=== PATIENT | male | born 2000 | race Caucasian/White ===

== ENCOUNTER 2020-05-10 08:30 | Emergency (ER) | payer MEDICARE, MEDICAID, SELFPAY ==
[2020-05-10 08:34] VITALS: BMI 21.2
[2020-05-10 08:38] VITALS: BP 133/79; PULSE 76; RESP 18; TEMP 36.6; O2SAT 98
--- NOTE | 2020-05-10 08:44 | W.ED.GENADLT ---
HPI - General Adult General: Chief complaint: General Medical Stated complaint: thinks he may need covid testing Time Seen by Provider: 05/10/20 08:32 History of Present Illness: HPI narrative: Patient works at [employer]. 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 Patient is asymptomatic at this time but would like to be tested. MD complaint: COVID exposure Onset (ago): day(s) Associated symptoms: Deny chest pain, dyspnea, headache(s), nausea, rash or vomiting Review of Systems Const: Denies: fever(s), chills or body aches Eyes: Denies: change in vision or blurry vision ENMT: Denies: throat pain or nasal congestion Card: Denies: chest pain or dyspnea on exertion Resp: Denies: dyspnea, productive cough or non-productive cough GI: Denies: abdominal pain, nausea or vomiting : Denies: difficulty urinating Musc: Denies: extremity pain Skin/Breast: Denies: rash Neuro: Denies: headache(s) Psych: Denies: anxiety or depression Danny/Lymph: Denies: easy bruising PFSH ED PFSH: Social History Smoking and tobacco status: never smoked Physical Exam Const: COMMON NORMALS: no acute distress, average body habitus and patient oriented x3 HENMT: COMMON NORMALS: normocephalic HEAD & SCALP: normal to inspection and normocephalic FACE & SINUS: normal facial exam Eye: COMMON NORMALS: conjunctivae normal GENERAL EYE: appearance normal, both eyes and all related structures CONJUNCTIVA: Yes conjunctivae normal Neck/C-Spine: COMMON NORMALS: no JVD Chest: COMMONS NORMALS: normal inspection of the chest Resp: COMMON NORMALS: normal respiratory effort Cardio: COMMON NORMALS: no JVD GI: COMMON NORMALS: Normal to inspection, nondistended, normoactive bowel sounds present Extremity: COMMON NORMALS: normal to inspection and full ROM Neuro: COMMON NORMALS: patient oriented x3 Course Vital Signs: Vital signs: Vital Signs Temperature 97.9 F 05/10/20 08:38 Pulse Rate 76 05/10/20 08:38 Respiratory Rate 18 05/10/20 08:38 Blood Pressure 133/79 05/10/20 08:38 Pulse Oximetry 98 05/10/20 08:38 Discharge Plan Discharge Prescriptions: No Action No Known Home Medications RF: 0 Coding Level of Care Code 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
[2020-05-10 09:28] VITALS: BP 133/79; PULSE 76; RESP 18; TEMP 36.6; O2SAT 98
== END 2020-05-10 09:28 | disposition home or self-care (01) ==
PROVIDERS: Emergency Provider Nurse Practitioner Family; PCP Occupational Therapist
DX: Z20.828 Contact with and (suspected) exposure to other viral communicable diseases (principal)
CPT/HCPCS: 12345; 99281; 99283

== ENCOUNTER 2021-06-12 22:39 | Emergency (ER) | payer OTHER, MEDICARE, MEDICAID, SELFPAY ==
[2021-06-12 22:52] VITALS: BP 130/88; PULSE 109; RESP 18; TEMP 36.9; O2SAT 95; BMI 30.7
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
[2021-06-12] MEDS: ketorolac 30 mg/mL INJ 15 MG IVP (23:26)
[2021-06-12] MEDS: iohexol 300 mg/mL 100 mL Btl IV (23:37)
[2021-06-13 00:01] LABS: Basophils % 0.3 %; Eosinophils % 0.4 %; Hematocrit 45.5 % (42.0-52.0); Hemoglobin 15.2 g/dL (11.7-16.6); Lymphocytes # 2.3 10^3/uL (0.8-4.8); Lymphocytes % 33.3 %; Mean Corpuscular HGB Conc 33.4 g/dL (30.0-36.0); Mean Corpuscular Hemoglobin 28.1 pg (28.0-34.0); Mean Corpuscular Volume 84.1 fL (80-94); Mean Platelet Volume 10.1 fL (7.4-10.4); Monocytes # 0.4 10^3/uL (0.2-0.9); Monocytes % 6.2 %; Neutrophils # 4.15 10^3/uL (1.8-7.7); Neutrophils % 59.5 %; Nucleated Red Blood Cells % 0 %; Platelet Count 220 10^3/cmm (130-400); Red Blood Count 5.41 10^6/uL (4.1-5.3); Red Cell Distribution Width 13.3 % (12.1-15.1)
[2021-06-13 00:19] LABS: Alanine Aminotransferase 39 U/L (0-41); Albumin Level 5.1 g/dL (3.5-5.2); Alkaline Phosphatase 78 IU/L (40-130); Anion Gap 18.3 (5-19); Aspartate Amino Transferase 29 U/L (0-40); Blood Urea Nitrogen 11 mg/dL (6-20); Calcium 9.6 mg/dL (8.5-10.5); Carbon Dioxide 26 mmol/L (22-29); Chloride 98 mmol/L (98-107); Glomerular Filtration Rate 120.9 mL/min (90-130); Glucose 101 mg/dL (65-115); Osmolality Calculated 288 mOsm/kg (285-295); Potassium 3.3 mmol/L (3.5-5.1); Sodium 139 mmol/L (136-145); Total Bilirubin 0.5 mg/dL (0.15-1.2); Total Protein 8.1 g/dL (6.6-8.7)
[2021-06-13 01:15] VITALS: BP 123/69; RESP 16
--- NOTE | 2021-06-14 12:08 | DCPLANNER ---
manager product design had message to schedule a follow up appointment for patient with heart care. manager product design called [facility], spoke with Saima, gave clinic patients information. A follow up appointment was scheduled for June at 3:[address] Buck. manager product design called patient, spoke with his father, gave him the appointment information for patient.
--- NOTE | 2021-06-14 15:36 | DCPLANNER ---
Addendum entered by Jessica Matthews 06/16/21 07:42: Patient has a follow up appointment scheduled for June at 2:[address] Martinez. Clinic will call patient with appointment information. Original Note: information technology program manager had message to schedule a follow up appointment for patient with ENT. information technology program manager emailed patients information to Marianela Arias and Norma at [facility] General Surgery / ENT clinic. Patients information will be printed and reviewed. Clinic will call patient with appointment information.
--- NOTE | 2021-07-02 14:57 | DCPLANNER ---
Patient had a follow up appointment scheduled for 06.17.21 with ENT - patient did attend appointment.
--- NOTE | 2021-07-02 14:58 | DCPLANNER ---
Patient had a follow up appointment scheduled for 06.17.21 with [facility] - patient did attend appointment.
== END 2021-06-13 01:10 | disposition home or self-care (01) ==
PROVIDERS: Emergency Provider Nurse Practitioner Family; PCP Occupational Therapist
DX: S02.2XXA Fracture of nasal bones, initial encounter for closed fracture (principal); S50.12XA Contusion of left forearm, initial encounter; S80.12XA Contusion of left lower leg, initial encounter; V13.4XXA Pedal cycle driver injured in collision with car, pick-up truck or van in traffic accident, initial encounter
CPT/HCPCS: 70450; 70486; 71260; 72125; 73000; 73060; 73090; 73552; 73590; 74177; 80053; 85025; 96374; 99283; J1885; Q9967

== ENCOUNTER 2021-07-21 11:45 | Outpatient (CLI) | payer MEDICARE, MEDICAID, SELFPAY ==
--- NOTE | 2021-07-21 12:00 | USCV_ITS ---
Syliwa Varelan Age: 20 Gender: M : 2000 Exam Date: 07/21/2021 12:09 Ordering Phys: Storm Hyde M.D ([email or web address]) Technologist: MEAGHAN Exam Location: [facility] [place] Indication: HYPERTENSION BP: 124 / 72 HR: 54 Rhythm: Sinus Technical Quality: Good MEASUREMENTS (Male / Female) Normal Values 2D ECHO LV Diastolic Diameter PLAX 4.9 cm 4.2 - 5.9 / 3.9 - 5.3 cm LV Systolic Diameter PLAX 3.2 cm IVS Diastolic Thickness 0.7 cm 0.6 - 1.0 / 0.6 - 0.9 cm IVS Systolic Thickness 1.2 cm LVPW Diastolic Thickness 1.1 cm 0.6 - 1.0 / 0.6 - 0.9 cm LVPW Systolic Thickness 1.7 cm LVOT Diameter 2.3 cm LV Ejection Fraction 2D Teich 63.9 % LV Ejection Fraction MOD 2C 57.7 % LV Ejection Fraction 2C AL 57.7 % LA Diameter 2.9 cm LA Width 4.0 cm LA Height 5.9 cm RA Width 4.5 cm RA Height 4.7 cm Aorta at Sinotubular Diameter 2.9 cm DOPPLER AV Peak Velocity 103.0 cm/s LVOT Peak Velocity 95.0 cm/s AV Area Cont Eq vti 3.6 cm squared AV Area Cont Eq pk 3.8 cm squared MV Peak Velocity 376.0 cm/s MV Area PHT 3.9 cm squared Mitral E to A Ratio 1.8 MV E' Velocity 47.5 cm/s Mitral E to MV E' Ratio 4.7 Mitral E to LV E' Lateral Ratio 4.5 Mitral E to LV E' Septal Ratio 5.0 TR Peak Velocity 206.9 cm/s TR Peak Gradient 17.1 mmHg TR Mean Velocity 101.3 cm/s TR Mean Gradient 4.7 mmHg TR Velocity Time Integral 43.0 cm PV Peak Velocity 59.0 cm/s RV Acceleration Time 0.1 s RV Ejection Time 0.3 s RV AcT/ET 0.4 FINDINGS Left Ventricle Normal left ventricular size. LV systolic function is normal with EF of 55-60%. No regional wall motion abnormalities. Normal diastolic filling pattern. Right Ventricle The right ventricle is normal in size and function. Right Atrium The right atrium is normal in size. Left Atrium The left atrium is normal in size. Mitral Valve Structurally normal mitral valve without significant stenosis or prolapse. There is mild mitral regurgitation. Aortic Valve Structurally normal aortic valve without significant sclerosis or stenosis. There is no aortic regurgitation. Tricuspid Valve Structurally normal tricuspid valve without significant stenosis or regurgitation. Insufficient TR jet to calculate RVSP Pulmonic Valve Structurally normal pulmonic valve without significant stenosis. There is no pulmonic regurgitation. Pericardium Normal pericardium without effusion. Aorta Normal ascending aorta dimension. CONCLUSIONS LV systolic function is normal with EF of 55-60% Diastolic function is normal Mild mitral regurgitation No comparison studies are available Storm Hyde MD (Electronically Signed) Final Date: 21 July 2021 17:13 S
== END 2021-07-21 11:46 | disposition home or self-care (01) ==
PROVIDERS: PCP Nurse Practitioner Family; Visit Provider Internal Medicine
DX: I11.9 Hypertensive heart disease without heart failure (principal); I34.0 Nonrheumatic mitral (valve) insufficiency
CPT/HCPCS: 93306

== ENCOUNTER → 2022-10-17 12:01 | Outpatient (BNVA) | payer MEDICARE, MEDICAID, SELFPAY | PROVIDERS: PCP Nurse Practitioner Family; Visit Provider Internal Medicine Cardiovascular Disease | DX: I10 Essential (primary) hypertension (principal) | CPT/HCPCS: 99213 ==

== ENCOUNTER → 2022-12-29 11:20 | Outpatient (BNVA) | payer MEDICARE, MEDICAID, SELFPAY | PROVIDERS: PCP Nurse Practitioner Family; Visit Provider Podiatrist Foot & Ankle Surgery | DX: M21.41 Flat foot [pes planus] (acquired), right foot (principal); M21.42 Flat foot [pes planus] (acquired), left foot; M76.811 Anterior tibial syndrome, right leg; M76.812 Anterior tibial syndrome, left leg | CPT/HCPCS: 99203 ==

== ENCOUNTER → 2023-02-22 11:11 | Outpatient (BNVA) | payer MEDICARE, MEDICAID, SELFPAY | PROVIDERS: PCP Nurse Practitioner Family; Visit Provider Podiatrist Foot & Ankle Surgery | DX: M76.811 Anterior tibial syndrome, right leg (principal); M76.812 Anterior tibial syndrome, left leg; M21.41 Flat foot [pes planus] (acquired), right foot; M21.42 Flat foot [pes planus] (acquired), left foot | CPT/HCPCS: 99213 ==

== ENCOUNTER → 2023-10-16 13:38 | Outpatient (BNVA) | payer MEDICARE, MEDICAID, SELFPAY | PROVIDERS: PCP Nurse Practitioner Family; Visit Provider Internal Medicine | DX: I10 Essential (primary) hypertension (principal); I34.0 Nonrheumatic mitral (valve) insufficiency | CPT/HCPCS: 99214 ==

== ENCOUNTER 2024-02-18 08:34 | Emergency (ER) | payer MEDICARE, MEDICAID, SELFPAY ==
[2024-02-18 08:35] VITALS: BMI 24.3
[2024-02-18 08:37] VITALS: BP 156/89; PULSE 90; RESP 16; TEMP 36.9; O2SAT 95
--- NOTE | 2024-02-18 08:39 | CTR_ITS ---
PROCEDURE INFORMATION: Exam: CT Head Without Contrast Exam date and time: 02/18/2024 8:50 AM Age: 23 years old Clinical indication: Other: Seizure TECHNIQUE: Imaging protocol: Computed tomography of the head without contrast. Radiation optimization: All CT scans at this facility use at least one of these dose optimization techniques: automated exposure control; mA and/or kV adjustment per patient size (includes targeted exams where dose is matched to clinical indication); or iterative reconstruction. COMPARISON: CT head wo con* [id number] 06/12/2021 11:18 PM RADIATION DOSE METRICS: Total DLP (mGy-cm): 1082.23 FINDINGS: Brain: Otherwise, no additional intracranial mass, midline shift, acute intracranial hemorrhage, nor abnormal extra-axial fluid collection seen. Donald-white matter differentiation appears maintained. Ventricles, sulci do not appear enlarged. Cerebral ventricles: See Brain finding. Pituitary gland and sella: Pituitary gland appears mildly prominent subjectively with upward bowing, convex superior surface, measured at about 8-9 mm. Paranasal sinuses: Partial opacification sphenoid sinus, left maxillary sinus, ethmoid air cells bilaterally. Sphenoid sinus appears large, prominent, with prominent pneumatization bilaterally. Mastoid air cells: Visualized portions mastoid air cells included appear clear bilaterally. Bones/joints: No displaced, depressed skull fracture seen. Soft tissues: Unremarkable. CT/CT head wo con* [id number] IMPRESSION: 1. No acute intracranial abnormality seen. 2. Pituitary gland appears mildly prominent subjectively with upward bowing, convex superior surface, measured at about 8-9 mm. Nonemergent MRI may be helpful. 3. Partial opacification paranasal sinuses.
--- NOTE | 2024-02-18 08:40 | ED_ITS ---
HPI - Seizure 2 General: Chief Complaint: Seizure Stated Complaint: SEIZURE Time Seen by Provider: 02/18/24 08:36 Source: patient Mode of arrival: ambulatory Limitations: no limitations History of Present Illness: HPI Narrative: 23-year-old male states he is up all nig ht playing video games to take a sleeping pill can go to sleep and then had a witnessed seizure. Seizure lasted roughly a minute he did not have a postictal period he is now back to his baseline he has no complaints he denies any headache or chest pain send no vomiting or diarrhea. Associated symptoms: Deny chest pain, chills or fever(s) Review of Systems 2 Const: Denies: fever(s), chills, body aches or change in appetite ENMT: Denies: throat pain or dental pain Card: Denies: chest pain Resp: Denies: dyspnea GI: Denies: abdominal pain, nausea, vomiting or diarrhea : Denies: dysuria Musc: Denies: neck pain or back pain Skin/Breast: Denies: rash Neuro: Reports: seizure-like activity; Denies: headache(s) PFSH ED 2 PFSH: Medical History Psychiatric care Hypertension Social History Smoking and tobacco/nicotine status: never used tobacco/nicotine Alcohol intake: never Substance/Drug Use: never Physical Exam 2 Const: COMMON NORMALS: no acute distress, patient oriented x3 and healthy appearing HENMT: COMMON NORMALS: normocephalic and atraumatic HEAD & SCALP: n ormocephalic and atraumatic Neck/C-Spine: COMMON NORMALS: full ROM and supple Chest: COMMONS NORMALS: normal inspection of the chest and normal palpation of entire chest wall Resp: COMMON NORMALS: normal respiratory effort, No retractions, No use of accessory muscles and clear to auscultation bilaterally AUSCULTATION: clear to auscultation bilaterally Cardio: COMMON NORMALS: regular rate, regular rhythm and No murmurs present (Cardio) RATE: regular rate RHYTHM: regular rhythm GI: COMMON NORMALS: Normal to inspection, nondistended, normoactive bowel sounds present, Soft to palpation, non-tender and no masses PALPATION: Yes Soft to palpation Extremity: COMMON NORMALS: normal to inspection and full ROM Neuro: COMMON NORMALS: patient oriented x3, moves all extremities and no focal motor deficits Psych: COMMON NORMALS: mental status grossly normal, Normal thought process present and cooperative THOUGHT PROCESS: Normal thought process present Skin: COMMON NORMALS: no rashes or lesions noted and no wounds GENERAL SKIN EXAM: no rashes or lesions noted Course 2 Vital Signs: Vital signs: Vital Signs Temperature 98.5 F 02/18/24 08:37 Pulse Rate 70 02/18/24 09:32 Respiratory Rate 14 02/18/24 09:32 Blood Pressure 156/89 02/18/24 09:32 Pulse Oximetry 100 02/18/24 09:32 Oxygen Delivery Me thod Room Air 02/18/24 09:32 MDM - Seizure MDM Narrative Medical decision making narrative: Patient presents here with a seizure he is well-appearing here head CT blood work are normal white well-appearing here he stable for discharge he is follow- up with neurology and return if worsening. Lab Data 02/18/24 08:41 02/18/24 08:41 Labs: Radiology Impressions Head CT 02/18/24 08:39 IMPRESSION: 1. No acute intracranial abnormality seen. 2. Pituitary gland appears mildly prominent subjectively with upward bowing, convex superior surface, measured at about 8-9 mm. Nonemergent MRI may be helpful. 3. Partial opacification paranasal sinuses. Laboratory Results WBC 7.06 10^3/uL (3.29-11.43) 02/18/24 08:41 RBC 5.36 10^6/uL (3.85-5.65) 02/18/24 08:41 Hgb 15.20 g/dL (11.27-16.99) 02/18/24 08:41 Hct 46.6 % (37-53) 02/18/24 08:41 MCV 86.9 fl (82-101) 02/18/24 08:41 MCH 28.4 pg (27-33) 02/18/24 08:41 MCHC 32.6 g/dL (30-55) 02/18/24 08:41 RDW 13.4 % (12.1-15.1) 02/18/24 08:41 Plt Count 211 10^3/cmm (157-399) 02/18/24 08:41 MPV 10.3 fL (7.4-10.4) 02/18/24 08:41 Neut % (Auto) 41.4 % 02/18/24 08:41 Lymph % (Auto) 46.5 % 02/18/24 08:41 [place] % (Auto) 7.1 % 02/18/24 08:41 Eos % (Auto) 2.3 % 02/18/24 08:41 Baso % (Auto) 0.4 % 02/18/24 08:41 Neut # (Auto) 2.93 10^3/uL (1.8-7.7) 02/18/24 08:41 Lymph # (Auto) 3.3 10^3/uL (0.8-4.8) 02/18/24 08:41 [place] # (Auto) 0.5 10^3/uL (0.2-0.9) 02/18/24 08:41 Eos # (Auto) 0.2 10^3/uL (0.0-0.8) 02/18/24 08:41 Baso # (Auto) 0.0 10^3/uL (0.0-0.1) 02/18/24 08:41 Nucleated RBC % (auto) 0 % 02/18/24 08:41 Nucleated RBCs # 0.0 /100WBC 02/18/24 08:41 Sodium 140 mmol/L (136-145) 02/18/24 08:41 Chloride 98 mmol/L (98-107) 02/18/24 08:41 BUN 9 mg/dL (6-20) 02/18/24 08:41 Creatinine 0.8 mg/dL (0.7-1.2) 02/18/24 08:41 GFR Calculation 117.8 mL/min (90-130) 02/18/24 08:41 Calculated Osmolality 290 mOsm/kg (285-295) 02/18/24 08:41 Calcium 9.8 mg/dL (8.5-10.5) 02/18/24 08:41 Total Bilirubin 0.4 mg/dL (0.15-1.2) 02/18/24 08:41 AST 30 U/L (0-40) 02/18/24 08:41 Alkaline Phosphatase 84 U/L (40-130) 02/18/24 08:41 Total Protein 8.2 g/dL (6.6-8.7) 02/18/24 08:41 Albumin 4.8 g/dL (3.5-5.2) 02/18/24 08:41 Globulin 3.4 g/dL (1.3-4.6) 02/18/24 08:41 All radiology interpretation(s) finalized by discharge Discharge Plan Discharge Patient Disposition: Home Clinical Impression: Generalized seizure Condition: Stable Prescriptions: No Action sertraline [Zoloft] 100 mg tablet 100 mg PO DAILY Qty: 30 2RF Rx Instructions: Take 1/2 tab daily for 2 weeks then a full tab daily lisinopril 5 mg tablet 5 mg PO DAILY trazodone 50 mg tablet 100 mg PO BEDTIME PRN (Reason: insomnia) Rx Instructions: Take 1-2 tabs at night as needed. Discharge Orders: Discharge ED (Routine); Ordered 02/18/24 Ordered By: Neil Vela Referrals: Airam Trevizo FNP [Primary Care Provider] - 1-3 days Discharge Diet: Advance as tolerated Discharge Activity: Resume usual activity Patient Instructions: Generalized Tonic Clonic Seizures (ED) Coding Level of Care Code ED English Lecturer for Shelton Hilario
[2024-02-18 09:05] LABS: Basophils % 0.4 %; Eosinophils # 0.2 10^3/uL (0.0-0.8); Eosinophils % 2.3 %; Hematocrit 46.6 % (37-53); Lymphocytes # 3.3 10^3/uL (0.8-4.8); Lymphocytes % 46.5 %; Mean Corpuscular HGB Conc 32.6 g/dL (30-55); Mean Corpuscular Hemoglobin 28.4 pg (27-33); Mean Corpuscular Volume 86.9 fl (82-101); Mean Platelet Volume 10.3 fL (7.4-10.4); Monocytes # 0.5 10^3/uL (0.2-0.9); Monocytes % 7.1 %; Neutrophils # 2.93 10^3/uL (1.8-7.7); Neutrophils % 41.4 %; Nucleated Red Blood Cells % 0 %; Platelet Count 211 10^3/cmm (157-399); Red Blood Count 5.36 10^6/uL (3.85-5.65); Red Cell Distribution Width 13.4 % (12.1-15.1); White Blood Count 7.06 10^3/uL (3.29-11.43)
[2024-02-18 09:29] LABS: Alanine Aminotransferase 67 U/L (0-41); Albumin Level 4.8 g/dL (3.5-5.2); Alkaline Phosphatase 84 U/L (40-130); Aspartate Amino Transferase 30 U/L (0-40); Blood Urea Nitrogen 9 mg/dL (6-20); Calcium 9.8 mg/dL (8.5-10.5); Carbon Dioxide 18 mmol/L (22-29); Chloride 98 mmol/L (98-107); Creatinine Clr Calc Pharmacy 149.0296; Globulin 3.4 g/dL (1.3-4.6); Glomerular Filtration Rate 117.8 mL/min (90-130); Glucose 122 mg/dL (65-115); Osmolality Calculated 290 mOsm/kg (285-295); Sodium 140 mmol/L (136-145); Total Bilirubin 0.4 mg/dL (0.15-1.2); Total Protein 8.2 g/dL (6.6-8.7)
[2024-02-18 09:32] VITALS: BP 156/89; PULSE 70; RESP 14; O2SAT 100
[2024-02-18 09:44] LABS: Anion Gap 27.4 (5-19); Potassium 3.4 mmol/L (3.5-5.1)
[2024-02-18 10:06] VITALS: BP 126/75; PULSE 75; RESP 16; O2SAT 97
--- NOTE | 2024-02-19 10:52 | DCPLANNER ---
A message was sent to neurology on 02/19/24 at [id number]. [facility] to contact patient for appt
== END 2024-02-18 10:07 | disposition home or self-care (01) ==
PROVIDERS: Emergency Provider Emergency Medicine; PCP Nurse Practitioner Family
DX: G40.89 Other seizures (principal); I10 Essential (primary) hypertension
CPT/HCPCS: 70450; 80053; 85025; 99284

== ENCOUNTER 2024-03-20 06:43 | Outpatient (CLI) | payer MEDICARE, MEDICAID, SELFPAY ==
--- NOTE | 2024-03-20 07:15 | MR_ITS ---
WS: [id number] MRI HEAD WITHOUT AND WITH GADOLINIUM ENHANCEMENT WITH PITUITARY PROTOCOL. TECHNIQUE: Sagittal T1, T2 axial, T2 axial FLAIR, axial susceptibility weighted imaging, axial diffus ion weighted images, and coronal T2 images were obtained. Pre and post-T1 axial and post T1 coronal i mages. ADC and FSPGR images. Pituitary protocol performed CLINICAL INFORMATION: PITUITARY GLAND ENLARGED COMPARISON: CT head 02/18/2024 FINDINGS: Slightly prominent pituitary tissue at the upper end of the range although within normal limits for a patient this age with slightly convex superior border. Pituitary tissue measures approximately 8 mm craniocaudal. Normal enhancing pituitary tissue. No focal lesions. No evidence of microadenoma on the dynamic imaging. Normal optic chiasm and pituitary infundibulum. Normal cavernous sinuses and Meckel 's cave. No evidence of restricted diffusion to suggest acute ischemia. Normal posterior fossa. Normal vascula r flow voids at the skull base. No extra-axial fluid collections. No evidence of mass or mass effect. Paranasal sinuses and mastoid air cells are well aerated. Normal posterior nasopharynx. No hemosiderin on susceptibility-weighted images. MR/MR pituitary wo/w con* [id number] IMPRESSION: 1. Slightly prominent pituitary tissue at the upper limits of normal has a ravi ign appearance likely incidental. Recommend correlation with pituitary function studies. 2. No evidence of intrasellar or suprasellar mass. No evidence of microadenoma . 3. No other acute findings.
== END 2024-03-20 06:44 | disposition home or self-care (01) ==
LOC: RAD 06:44
PROVIDERS: PCP Nurse Practitioner Family; Visit Provider Nurse Practitioner Family
DX: E23.6 Other disorders of pituitary gland (principal)
CPT/HCPCS: 70553; A9577

== ENCOUNTER → 2024-06-12 08:33 | Outpatient (BNVA) | payer MEDICARE, SELFPAY | PROVIDERS: PCP Nurse Practitioner Family; Referring Provider Nurse Practitioner Family; Visit Provider Specialist | DX: G40.909 Epilepsy, unspecified, not intractable, without status epilepticus; Q86.0 Fetal alcohol syndrome (dysmorphic) | CPT/HCPCS: 99204; 99205 ==

== ENCOUNTER → 2024-07-04 09:21 | Outpatient (BNVA) | payer MEDICARE, MEDICAID, OTHER, SELFPAY | PROVIDERS: PCP Nurse Practitioner Family; Referring Provider Nurse Practitioner Family; Visit Provider Internal Medicine | DX: E23.7 Disorder of pituitary gland, unspecified (principal); R56.9 Unspecified convulsions; F41.1 Generalized anxiety disorder | CPT/HCPCS: 99204 ==

== ENCOUNTER 2024-07-10 08:40 | Outpatient (CLI) | payer MEDICARE, MEDICAID, SELFPAY ==
[2024-07-10 10:07] LABS: Cortisol Random 8.82 ug/dL (2.47-19.5); Free T4 Free Thyroxine 1.45 ng/dL (0.82-1.77); Testosterone Total 539.2 ng/dL (249-836); Thyroid Stimulating Hormone 2.39 uIU/mL (0.27-4.20)
[2024-07-10 11:44] LABS: Follicle Stimulating Hormone 3.5 mIU/mL (1.5-12.4); Luteinizing Hormone 2.7 mIU/mL (1.7-8.6); Prolactin 12.41 ng/mL (4.0-15.2)
== END 2024-07-10 08:41 | disposition home or self-care (01) ==
LOC: LAB 08:44
PROVIDERS: PCP Nurse Practitioner Family; Visit Provider Internal Medicine
DX: E23.7 Disorder of pituitary gland, unspecified (principal); R56.9 Unspecified convulsions; F41.1 Generalized anxiety disorder
CPT/HCPCS: 36415; 82533; 83001; 83002; 84146; 84305; 84403; 84439; 84443

== ENCOUNTER 2024-08-14 07:54 | Outpatient (CLI) | payer MEDICARE, MEDICAID, SELFPAY ==
--- NOTE | 2024-08-14 08:00 | MR_ITS ---
WS: [id number] MRI HEAD WITHOUT AND WITH GADOLINIUM ENHANCEMENT WITH PITUITARY PROTOCOL TECHNIQUE: Sagittal T1, T2 axial, T2 axial FLAIR, axial susceptibility weighted imaging, axial diffus ion weighted images, and coronal T2 images were obtained. Pre and post-T1 axial and post T1 coronal i mages. ADC and FSPGR images. Pituitary protocol. CLINICAL INFORMATION: pituitary disorder COMPARISON: MRI 03/20/2024 FINDINGS: No evidence of restricted diffusion to suggest acute ischemia. No suspicious intracranial signal norm alities. Normal delgado-white differentiation. Normal posterior fossa. Normal vascular flow voids at the skull base. No extra-axial fluid collections. No evidence of mass or mass effect. Mild mucosal thick ening in the paranasal sinuses. Mastoid air cells are well aerated. Normal posterior nasopharynx. Again seen is prominent pituitary tissue at the upper end of the range although within normal limits for a patient this age as previously described. Slightly convex superior border. Pituitary tissue trent sures approximately 8 mm craniocaudal unchanged compared to previous. Normal enhancing pituitary tiss ue. No evidence of microadenoma on the dynamic imaging. No evidence of suprasellar mass. Normal optic chi asm and pituitary infundibulum. Normal cavernous sinuses and Meckel's cave. MR/MR pituitary wo/w con* [id number] IMPRESSION: 1. No evidence of restricted diffusion to suggest acute ischemia. 2. Previously described prominent pituitary tissue at the upper end of the ran ge is unchanged in appearance compared to previous. 3. No evidence of intrasellar or suprasellar mass. 4. No other acute findings.
[2024-08-14] MEDS: gadobenate dimeglumine 20 mL vial 17 ML IV (09:01)
== END 2024-08-14 07:55 | disposition home or self-care (01) ==
LOC: RAD 07:55
PROVIDERS: PCP Nurse Practitioner Family; Visit Provider Internal Medicine
DX: E23.7 Disorder of pituitary gland, unspecified (principal)
CPT/HCPCS: 70553

== ENCOUNTER → 2024-09-20 07:54 | Outpatient (BNVA) | payer MEDICARE, MEDICAID, SELFPAY | PROVIDERS: PCP Nurse Practitioner Family; Visit Provider Specialist | DX: R56.9 Unspecified convulsions (principal) | CPT/HCPCS: 95819 ==

== ENCOUNTER → 2024-12-06 08:15 | Outpatient (BNVA) | payer MEDICARE, MEDICAID, OTHER, SELFPAY | PROVIDERS: PCP Nurse Practitioner Family; Visit Provider Specialist | DX: G40.909 Epilepsy, unspecified, not intractable, without status epilepticus (principal); Q86.0 Fetal alcohol syndrome (dysmorphic) | CPT/HCPCS: 99214 ==

== ENCOUNTER 2025-04-28 14:06 | Emergency (ER) | payer MEDICARE, MEDICAID, SELFPAY ==
[2025-04-28 14:14] VITALS: BP 125/77; PULSE 85; RESP 20; TEMP 36.7; O2SAT 99
--- NOTE | 2025-04-28 14:22 | ED.C_ITS ---
HPI - Psych 2 General: Chief Complaint: Psychiatric Symptoms Stated Complaint: SI Time Seen by Provider: 04/28/25 14:07 Source: patient and EMS Mode of arrival: EMS Limitations: no limitations History of Present Illness: 24-year-old male history of feta alcohol syndrome lives in assisted living patient today try to kill himself he admitted saying suicidal he put a bag over his head try to suffocate himself. Patient here is very upset crying states he has pain all over difficult to get history from him at this time with how upset he is. Related Data Home Medications ?Medication ?Instructions ?Recorded ?Confirmed lisinopril 5 mg tablet 5 mg PO DAILY 02/18/2404/28 Previous Rx's ?Medication ?Instructions ?Recorded amitriptyline 25 mg tablet 25 mg PO .HS #30 tabs 11/27 Allergies Allergy/AdvReac Type Severity Reaction Status Date / Time No Known Allergies Allergy Verified 12/06/24 08:26 Review of Systems 2 General: Reports: ROS unobtainable due to mental status PFSH ED 2 PFSH: Medical History Psychiatric care Hypertension Social History Smoking and tobacco/nicotine status: never used tobacco/nicotine Alcohol intake: never Substance/Drug Use: never Physical Exam 2 Const: GENERAL APPEARANCE: anxious HENMT: COMMON NORMALS: normocephalic and atraumatic HEAD & SCALP: n ormocephalic and atraumatic Eye: COMMON NORMALS: conjunctivae normal CONJUNCTIVA: Yes conjunctivae normal Neck/C-Spine: COMMON NORMALS: full ROM and supple Chest: COMMONS NORMALS: normal inspection of the chest Resp: COMMON NORMALS: normal respiratory effort, No retractions, No use of accessory muscles and clear to auscultation bilaterally AUSCULTATION: clear to auscultation bilaterally Cardio: COMMON NORMALS: regular rate, regular rhythm and No murmurs present (Cardio) RATE: regular rate RHYTHM: regular rhythm GI: COMMON NORMALS: Normal to inspection, nondistended, normoactive bowel sounds present, Soft to palpation, non-tender and no masses PALPATION: Yes Soft to palpation Extremity: COMMON NORMALS: normal to inspection and full ROM Neuro: COMMON NORMALS: moves all extremities and no focal motor deficits Psych: ACTIVITY/MOTOR BEHAVIOR: Yes restless MOOD & AFFECT: Yes depressed mood and Yes tearful THOUGHT CONTENT: Yes Suicidality present Skin: COMMON NORMALS: no rashes or lesions noted and no wounds GENERAL SKIN EXAM: no rashes or lesions noted Course 2 Vital Signs: Vital signs: Vital Signs Temperature 98.1 F 04/28/25 14:14 Pulse Rate 73 04/28/25 19:00 Respiratory Rate 20 H 04/28/25 14:14 Blood Pressure 125/77 04/28/25 14:14 Pulse Oximetry 92 04/28/25 19:00 Oxygen Delivery Me thod Room Air 04/28/25 19:00 MDM - Psych Medical Decision Making Patient presents here with suicidal ideations patient is medically cleared he is calm down he is excepted at [place] will transfer there as we do not have any bed availability. Medical Records I reviewed the patient's medical records. Lab Data I reviewed the patient's lab results. 04/28/25 16:00 04/28/25 16:00 Laboratory Results WBC 7.27 10^3/uL (3.29-11.43) 04/28/25 16:00 RBC 5.27 10^6/uL (3.85-5.65) 04/28/25 16:00 Hgb 14.90 g/dL (11.27-16.99) 04/28/25 16:00 Hct 43.3 % (37-53) 04/28/25 16:00 MCV 82.2 fl (82-101) 04/28/25 16:00 MCH 28.3 pg (27-33) 04/28/25 16:00 MCHC 34.4 g/dL (30-55) 04/28/25 16:00 RDW 12.6 % (12.1-15.1) 04/28/25 16:00 Plt Count 203 10^3/cmm (157-399) 04/28/25 16:00 MPV 10.1 fL (7.4-10.4) 04/28/25 16:00 Neut % (Auto) 76.0 % 04/28/25 16:00 Lymph % (Auto) 19.1 % 04/28/25 16:00 [place] % (Auto) 4.5 % 04/28/25 16:00 Eos % (Auto) 0.0 % 04/28/25 16:00 Baso % (Auto) 0.1 % 04/28/25 16:00 Neut # (Auto) 5.52 10^3/uL (1.8-7.7) 04/28/25 16:00 Lymph # (Auto) 1.4 10^3/uL (0.8-4.8) 04/28/25 16:00 [place] # (Auto) 0.3 10^3/uL (0.2-0.9) 04/28/25 16:00 Eos # (Auto) 0.0 10^3/uL (0.0-0.8) 04/28/25 16:00 Baso # (Auto) 0.0 10^3/uL (0.0-0.1) 04/28/25 16:00 Nucleated RBC % (auto) 0 % 04/28/25 16:00 Nucleated RBCs # 0.0 /100WBC 04/28/25 16:00 Sodium 140 mmol/L (136-145) 04/28/25 16:00 Potassium 3.5 mmol/L (3.5-5.1) 04/28/25 16:00 Chloride 104 mmol/L (98-107) 04/28/25 16:00 Carbon Dioxide 21 mmol/L (22-29) L 04/28/25 16:00 Anion Gap 18.5 (5-19) 04/28/25 16:00 BUN 16 mg/dL (6-20) 04/28/25 16:00 Creatinine 0.8 mg/dL (0.7-1.2) 04/28/25 16:00 GFR Calculation 116.9 mL/min (90-130) 04/28/25 16:00 Glucose 82 mg/dL (65-115) 04/28/25 16:00 Calculated Osmolality 290 mOsm/kg (285-295) 04/28/25 16:00 Calcium 10.3 mg/dL (8.5-10.5) 04/28/25 16:00 Total Bilirubin 0.6 mg/dL (0.15-1.2) 04/28/25 16:00 AST 20 U/L (0-40) 04/28/25 16:00 ALT 22 U/L (0-41) 04/28/25 16:00 Alkaline Phosphatase 69 U/L (40-130) 04/28/25 16:00 Total Protein 7.9 g/dL (6.6-8.7) 04/28/25 16:00 Albumin 4.6 g/dL (3.5-5.2) 04/28/25 16:00 Globulin 3.3 g/dL (1.3-4.6) 04/28/25 16:00 TSH 2.08 uIU/mL (0.27-4.20) 04/28/25 16:00 Salicylates < 0.3 mg/dL (3-10) L 04/28/25 16:00 Urine Opiates Screen Negative ng/mL (Negative) 04/28/25 19:32 Acetaminophen < 5.0 ug/mL (10-30) L 04/28/25 16:00 Ur Barbiturates Screen Negative ng/mL (Negative) 04/28/25 19:32 Ur Phencyclidine Scrn Negative ng/mL (Negative) 04/28/25 19:32 Ur Amphetamines Screen Negative ng/mL (Negative) 04/28/25 19:32 U Benzodiazepines Scrn Positive ng/mL (Negative) H 04/28/25 19:32 Urine Cocaine Screen Negative ng/mL (Negative) 04/28/25 19:32 U Marijuana (THC) Screen Negative ng/mL (Negative) 04/28/25 19:32 Ethyl Alcohol < 10 mg/dL (0-10) 04/28/25 16:00 Influenza A (PCR) Negative (Negative) 04/28/25 15:50 Influenza Type B (PCR) Negative (Negative) 04/28/25 15:50 RSV (PCR) Negative (Negative) 04/28/25 15:50 SARS-CoV-2 (PCR) Negative (Negative) 04/28/25 15:50 All radiology interpretation(s) finalized by discharge EKG Data EKG 1: I personally reviewed and interpreted this EKG as follows: EKG interpretation date: 04/28/25 EKG interpretation time: 16:16 Interpretation: nsr hr [address] elevation qrs 94 qtc 421 Discharge Plan Discharge Patient Disposition: Admitted As Inpatient Clinical Impression: Suicidal ideation Condition: Stable Coding Level of Care Code ED Financial Advocate for Chg Sulaiman
[2025-04-28] MEDS: LORazepam 1 MG/0.5 ML injection 2 MG IM (14:42)
--- NOTE | 2025-04-28 16:16 | ECG_ITS ---
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 Measurements Intervals [place] Rate: 81 P: 50 SC: 160 QRS: 62 QRSD: 94 T: 37 QT: 384 QTc: 446 Interpretive Statements SINUS RHYTHM POSSIBLE LEFT ATRIAL ENLARGEMENT [-0.1mV P-WAVE IN V1/V2] POSSIBLE RIGHT VENTRICULAR CONDUCTION DELAY [RSR (QR) IN V1/V2] MODERATE ST DEPRESSION [0.05+ mV ST DEPRESSION] No previous ECG available for comparison Electronically Signed On 04-28-2025 21:53:41 CDT by Yazan Hoffman M.D. [email or web address]
[2025-04-28 16:28] LABS: Basophils % 0.1 %; Hematocrit 43.3 % (37-53); Lymphocytes # 1.4 10^3/uL (0.8-4.8); Lymphocytes % 19.1 %; Mean Corpuscular HGB Conc 34.4 g/dL (30-55); Mean Corpuscular Hemoglobin 28.3 pg (27-33); Mean Corpuscular Volume 82.2 fl (82-101); Mean Platelet Volume 10.1 fL (7.4-10.4); Monocytes # 0.3 10^3/uL (0.2-0.9); Monocytes % 4.5 %; Neutrophils # 5.52 10^3/uL (1.8-7.7); Nucleated Red Blood Cells % 0 %; Platelet Count 203 10^3/cmm (157-399); Red Blood Count 5.27 10^6/uL (3.85-5.65); Red Cell Distribution Width 12.6 % (12.1-15.1); White Blood Count 7.27 10^3/uL (3.29-11.43)
[2025-04-28 16:34] LABS: Influenza A NEGATIVE (Negative); Influenza B NEGATIVE (Negative); Respiratory Syncytial Virus Ce NEGATIVE (Negative); SARS-CoV-2 PCR NEGATIVE (Negative)
[2025-04-28 17:07] LABS: Alanine Aminotransferase 22 U/L (0-41); Albumin Level 4.6 g/dL (3.5-5.2); Alkaline Phosphatase 69 U/L (40-130); Anion Gap 18.5 (5-19); Aspartate Amino Transferase 20 U/L (0-40); Blood Urea Nitrogen 16 mg/dL (6-20); Calcium 10.3 mg/dL (8.5-10.5); Carbon Dioxide 21 mmol/L (22-29); Chloride 104 mmol/L (98-107); Creatinine Clr Calc Pharmacy 135.0892; Globulin 3.3 g/dL (1.3-4.6); Glomerular Filtration Rate 116.9 mL/min (90-130); Glucose 82 mg/dL (65-115); Osmolality Calculated 290 mOsm/kg (285-295); Potassium 3.5 mmol/L (3.5-5.1); Sodium 140 mmol/L (136-145); Thyroid Stimulating Hormone 2.08 uIU/mL (0.27-4.20); Total Bilirubin 0.6 mg/dL (0.15-1.2); Total Protein 7.9 g/dL (6.6-8.7)
[2025-04-28 17:10] LABS: Acetaminophen < 5.0 ug/mL (10-30); Alcohol Level < 10 mg/dL (0-10); Salicylate < 0.3 mg/dL (3-10)
--- NOTE | 2025-04-28 18:24 | DCPLANNER ---
faxed packet to amada at [facility] available
--- NOTE | 2025-04-28 18:36 | PC.NURSE ---
PT STATES HE DOES HIS OWN ADL'S AT THE ASSISTED LIVING FACILITY
[2025-04-28 19:00] VITALS: PULSE 73; O2SAT 92
[2025-04-28 19:50] LABS: Amphetamines Screen Urine Negative (Negative); Barbiturates Screen Urine Negative (Negative); Benzodiazepines Screen Urine Positive (Negative); Cocaine Screen Urine Negative (Negative); Opiate Screen Urine Negative (Negative); PCP Screen Urine Negative (Negative); THC Screen Urine Negative (Negative)
[2025-04-28 22:06] VITALS: BP 94/54; PULSE 65; RESP 16; O2SAT 94
[2025-04-29] VITALS: PULSE 65; O2SAT 99
[2025-04-29 01:00] VITALS: BP 94/54; PULSE 65; O2SAT 94
== END 2025-04-29 | disposition admitted as inpatient to this hospital (09) ==
PROVIDERS: Emergency Provider Emergency Medicine; PCP Nurse Practitioner Family
DX: R45.851 Suicidal ideations (principal); Z11.52 Encounter for screening for COVID-19; I10 Essential (primary) hypertension
CPT/HCPCS: 36415; 80053; 80306; 80307; 84443; 85025; 87637; 93005; 96372; 99285; J2060

== ENCOUNTER 2025-07-21 09:31 | Outpatient (CLI) | payer MEDICARE, SELFPAY ==
--- NOTE | 2025-07-21 09:30 | MR_ITS ---
WS: [id number] MRI BRAIN WITHOUT AND WITH CONTRAST, ATTENTION DIRECTED TO THE PITUITARY GLAND HISTORY: Follow-up pituitary scan. COMPARISON: 08/14/2024, 03/20/2024 TECHNIQUE: Diffusion-weighted imaging, axial T2 sequence, and postcontrast images in 3 planes are performed. High-resolution coronal and sagittal imaging performed through the pituitary region with and without intravenous gadolinium. Pituitary gland: Mildly convex contour of the superior surface of the pituitary gland. Craniocaudad dimension is 7.0 mm which is top normal size. No interval change. On the postcontrast evaluation and dynamic imaging there is no mass identified. Normal pituitary enhancement. Infundibulum is in normal position. No deviation of the optic chiasm. Normal appearance of the sella turcica. Diffusion imaging is normal. No prior infarcts or hemorrhage. No cerebral or cerebellar atrophy or volume loss. No inferior displacement of cerebellar tonsils. Normal hippocampal formations. Normal flow voids. No air-fluid levels within the sinuses. Mastoid air cells are clear. Normal orbits and globes. MR/MR pituitary wo/w con* [id number] IMPRESSION: 1. Stable appearance of the pituitary gland since 03/20/2024. Normal configuratio n for patient's age. No micro adenoma or macroadenoma identified. 2. No significant volume loss or atrophy. 3. Normal hippocampal formation. 4. No prior infarcts.
[2025-07-21] MEDS: gadobenate dimeglumine 20 mL vial 17 ML IV (10:22)
== END 2025-07-21 09:32 | disposition home or self-care (01) ==
PROVIDERS: Visit Provider Internal Medicine
DX: E23.7 Disorder of pituitary gland, unspecified (principal)
CPT/HCPCS: 70553

== ENCOUNTER → 2025-07-28 10:56 | Outpatient (BNVA) | payer MEDICARE, SELFPAY | PROVIDERS: Visit Provider Internal Medicine | DX: E23.7 Disorder of pituitary gland, unspecified (principal); R56.9 Unspecified convulsions | CPT/HCPCS: 99214 ==